=== PATIENT | female | born 1965 | race Caucasian/White ===

== ENCOUNTER 2018-08-07 15:44 | Emergency (ER) | payer SELFPAY ==
[2018-08-07 16:00] VITALS: TEMP 98.4; O2SAT 98
[2018-08-07] MEDS ORDERED: predniSONE 20 MG TAB PO ONE (16:18)
[2018-08-07] MEDS ORDERED: GABAPENTIN 100 MG CAP PO ONE (16:19)
[2018-08-07] MEDS ORDERED: KETOROLAC TROMETHAMINE INJ 30 MG/ML VIAL IM ONE (16:20)
--- NOTE | 2018-08-07 16:21 | ED.PDOC ---
History of Present Illness - General Chief Complaint: General Stated Complaint: elevated BP Time Seen by Provider: 08/07/18 15:46 Source: patient Exam Limitations: no limitations - History of Present Illness Initial Comments: the patient is a 52-year-old female presenting to emergency room secondary to a left upper extremity radiculopathy that started last night after she woke up with a crick in her neck. It is on the left side. She does have a history of some sciatica to her lower extremity. She does have some palpable muscle spasm adjacent to C2-C4 on the left. No weakness and no sensory loss. No other neurological changes. No recent trauma. No altered mental status. Severity: moderate Improving Factors: nothing Worsening Factors: nothing Associated Symptoms: denies symptoms Allergies/Adverse Reactions: Allergies NO KNOWN ALLERGY Allergy (Verified 08/07/18 15:54) Home Medications: Ambulatory Orders Amlodipine Besylate 5 mg PO 08/07/18 Atorvastatin Calcium [Lipitor] 10 mg PO 08/07/18 Citalopram Hydrobromide [CeleXA] 20 mg PO 08/07/18 Cyclobenzaprine HCl [Flexeril] 10 mg PO TID PRN #20 tab 08/07/18 Gabapentin 100 mg PO Q6HR PRN #20 cap 08/07/18 Lisinopril [Prinivil] 20 mg PO 08/07/18 predniSONE [Prednisone] 20 mg PO DAILY #5 tab 08/07/18 Review of Systems - Review of Systems Constitutional: States: no symptoms reported EENTM: States: no symptoms reported Respiratory: States: no symptoms reported Cardiology: States: no symptoms reported Gastrointestinal/Abdominal: States: no symptoms reported Genitourinary: States: no symptoms reported Musculoskeletal: States: neck pain Skin: States: no symptoms reported Neurological: States: see HPI Endocrine: States: no symptoms reported All other Systems: No Change from Baseline Past Medical History (General) - Patient Medical History Hx Hypertension: Yes Hx Cancer: No - Vaccination History Hx Tetanus, Diphtheria Vaccination: No Hx Influenza Vaccination: No Hx Pneumococcal Vaccination: No Immunizations Up to Date: No - Social History Hx Tobacco Use: No Hx Alcohol Use: Yes - occ Hx Substance Use: No Hx Substance Use Treatment: No Hx Depression: Yes - Female History Patient is a Female of Child Bearing Age (10 -59 yrs old): No - Triage Comment ED Triage Comment: bcp for no periods Family Medical History - Family History Mother Living Status: Still Living Hx Cardiac Disease: Yes Father Living Status: Still Living Hx Cardiac Disease: Yes Physical Exam - Physical Exam General Appearance: Alert, Comfortable, No apparent distress Eye Exam: bilateral normal Ears, Nose, Throat: hearing grossly normal, normal pharynx Neck: full range of motion, other - See history of present illness. No palpable deformity. Respiratory: no respiratory distress, no accessory muscle use Cardiovascular/Chest: normal peripheral pulses, no edema Peripheral Pulses: radial,right: 2+, radial,left: 2+ Gastrointestinal/Abdominal: other - obese Rectal Exam: deferred Back Exam: no CVA tenderness, no vertebral tenderness, muscle spasm - adjacent to the cervical spine on the left Extremity: normal range of motion, non-tender, normal inspection, no pedal edema, normal capillary refill Neurologic: salvage grinder II-XII nml as tested, no motor/sensory deficits, alert, normal mood/affect, oriented x 3 Skin Exam: normal color Comments: Vital Signs - 24 hr 08/07/18 08/07/18 15:56 16:16 Temperature 98.4 F Pulse Rate [ 86 53 L monitor] Respiratory 18 18 Rate Blood Pressure 166/101 130/86 [LA] O2 Sat by Pulse 98 Oximetry Progress - Progress Progress: 08/07/18 16:22 the patient's 52-year-old female presenting to emergency room secondary to left upper extremity radiculopathy that appears to be related to mild impingement at the level of the cervical spine. She does have associated paraspinal muscle spasm. She has been given a dose of Toradol, Neurontin and prednisone here. She is going to be written for prednisone, Flexeril and Neurontin to take as an outpatient as needed over the coming week. Topical heat may prove beneficial. She also does need to do stretching exercises to help reduce muscle spasm. ER warnings were given for any significant worsening. Departure - Departure Clinical Impression: Radiculopathy affecting upper extremity Disposition: Discharge to Home or Self Care Condition: Fair Departure Forms: ED Discharge - Pt. Copy, Patient Portal Self Enrollment Diet: regular diet Activity: increase activity as tolerated Referrals: CHAD HONG [Primary Care Provider] - 1-2 Weeks Prescriptions: Gabapentin 100 mg PO Q6HR PRN #20 cap PRN Reason: Pain -- Moderate Cyclobenzaprine HCl [Flexeril] 10 mg PO TID PRN #20 tab PRN Reason: Muscle Spasms predniSONE [Prednisone] 20 mg PO DAILY #5 tab Home Medications: Ambulatory Orders Amlodipine Besylate 5 mg PO 08/07/18 Atorvastatin Calcium [Lipitor] 10 mg PO 08/07/18 Citalopram Hydrobromide [CeleXA] 20 mg PO 08/07/18 Cyclobenzaprine HCl [Flexeril] 10 mg PO TID PRN #20 tab 08/07/18 Gabapentin 100 mg PO Q6HR PRN #20 cap 08/07/18 Lisinopril [Prinivil] 20 mg PO 08/07/18 predniSONE [Prednisone] 20 mg PO DAILY #5 tab 08/07/18 Additional Instructions: the patient's 52-year-old female presenting to emergency room secondary to left upper extremity radiculopathy that appears to be related to mild impingement at the level of the cervical spine. She does have associated paraspinal muscle spasm. She has been given a dose of Toradol, Neurontin and prednisone here. She is going to be written for prednisone, Flexeril and Neurontin to take as an outpatient as needed over the coming week. Topical heat may prove beneficial. She also does need to do stretching exercises to help reduce muscle spasm. ER warnings were given for any significant worsening.
[2018-08-07 16:44] VITALS: BP 119/72
== END 2018-08-07 16:44 | disposition home or self-care (01) ==
LOC: ER 15:44
DX: M54.10 Radiculopathy, site unspecified (principal); M62.838 Other muscle spasm; F32.9 Major depressive disorder, single episode, unspecified; I10 Essential (primary) hypertension; Z79.899 Other long term (current) drug therapy
CPT/HCPCS: J1885; J7512